=== PATIENT | male | born 1935 | race Caucasian/White ===

== ENCOUNTER 2017-10-14 08:19 | Day surgery (SDC) | payer MEDICARE, OTHER ==
[2017-10-14 09:49] VITALS: BMI 22.6
[2017-10-14] MEDS ORDERED: Lactated Ringer's 1,000 ML IV ONE (09:57)
[2017-10-14] MEDS ORDERED: Propofol 10 mg/ml Inj (20 ML) ONE (11:07)
[2017-10-14] MEDS ORDERED: Lidocaine 2% MPF (5 ml) Inj ONE (11:08)
[2017-10-14 12:02] VITALS: BP 111/55; PULSE 51; RESP 12; TEMP 96.8; O2SAT 100
== END 2017-10-14 12:59 | disposition home or self-care (01) ==
LOC: H.ENDO 08:19
PROVIDERS: ATTEND Internal Medicine Gastroenterology
DX: K92.2 Gastrointestinal hemorrhage, unspecified (principal); N40.0 Benign prostatic hyperplasia without lower urinary tract symptoms; I10 Essential (primary) hypertension; K64.8 Other hemorrhoids; K57.30 Diverticulosis of large intestine without perforation or abscess without bleeding; K30 Functional dyspepsia; K44.9 Diaphragmatic hernia without obstruction or gangrene; K22.8 Other specified diseases of esophagus; K29.40 Chronic atrophic gastritis without bleeding
CPT/HCPCS: 43239; 45378; 88305; J2704; J7120